=== PATIENT | male | born 1960 | race American Indian/Alaskan Native ===

== ENCOUNTER 2016-07-23 08:59 | Emergency (ER) | payer MEDICAID ==
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
[2016-07-23] MEDS ORDERED: BOOSTRIX IM ONE (11:38)
[2016-07-23] MEDS ORDERED: ZESTRIL PO ONE (11:54)
--- NOTE | 2016-07-23 12:18 | Cat Scan Report ---
CT HEAD WITHOUT CONTRAST INDICATION: Fall, pain, LOC. COMPARISON: None similar. FINDINGS: Noncontrast head CT demonstrates normal ventricles and sulci without acute or recent infarct, hemorrhage, mass effect or midline shift. No abnormal extra-axial fluid collections. Slight periventricular hypodensities. Small, benign basal ganglia calcifications. Posterior fossa structures and basilar cisterns appear within normal limits. Symmetric eye globes. Clear paranasal sinuses and mastoid air cells. Intact calvarium. Normal overlying scalp soft tissues. Few missing teeth and radiopaque dental material incidentally noted. CONCLUSION: No acute intracranial CT abnormality, as described. Thank you for the opportunity to participate in this patient's care.
--- NOTE | 2016-07-23 12:32 | Cat Scan Report ---
CT CERVICAL SPINE WITHOUT CONTRAST INDICATION: Fall, pain. COMPARISON: None similar. FINDINGS: Noncontrast axial, sagittal and coronal CT reconstructions through the cervical spine demonstrate normal imaged posterior fossa with intact craniocervical articulation. Small radiopaque dental fillings and some missing teeth. Normal vertebral body alignment. Few small apical peripheral bullae, right more than left. On the obtained axial images: C2-C3 and C3-C4 appear unremarkable. C4-C5 demonstrates mild degenerative spurring. Mild disc bulge/osteophyte complex may partly efface ventral CSF space. C5-C6 demonstrates mild disc narrowing. Degenerative spurring noted with diffuse disc bulge/osteophyte complex posteriorly, possibly approaching/contacting the cord ventrally. Right neural foraminal narrowing. More inferior assessment obscured due to artifact from shoulder soft tissues, though imaged C6-C7 and C7-T1 levels appear grossly within normal limits. CONCLUSION: No acute cervical spine CT abnormality with few degenerative changes noted, greatest at C5-C6, as described. Please correlate. Thank you for the opportunity to participate in this patient's care.
[2016-07-23] MEDS ORDERED: PERCOCET 5/325 PO ONE (12:35)
--- NOTE | 2016-07-23 12:35 | Cat Scan Report ---
CT LUMBAR SPINE WITHOUT CONTRAST INDICATION: Fall, pain, left leg numbness. COMPARISON: None similar. FINDINGS: Noncontrast axial, sagittal and coronal CT reconstructions through the lumbar spine demonstrate normal vertebral body stature and alignment. Preserved disc heights. No large disc protrusion or spinal stenosis suspected. Mild aortic atherosclerotic calcifications. Bilateral SI joint degenerative changes. CONCLUSION: No acute lumbar spine CT abnormality with few other findings, as described. Please correlate. Thank you for the opportunity to participate in this patient's care.
[2016-07-23 12:57] VITALS: BP 194/115
--- NOTE | 2016-07-23 14:08 | XRay Report ---
LEFT FOREARM RADIOGRAPHS INDICATION: Pain, status post fall. History of surgery. COMPARISON: None similar. FINDINGS: AP and lateral left forearm views attempted, though limited due to patient unable to straighten his elbow. Numerous radiodense shrapnels seen about the elbow measuring up to 7 mm with old healed deformity. Grossly intact remainder imaged bones. Mild ulnar negative variance possible. CONCLUSION: Limited left elbow radiograph without definite acute abnormality with few incidental findings, as above. Please correlate. Thank you for the opportunity to participate in this patient's care.
--- NOTE | 2016-07-23 14:12 | XRay Report ---
RIB RADIOGRAPHS WITH CHEST VIEW INDICATION: Fall, pain, swelling. COMPARISON: None similar. FINDINGS: Frontal chest as also AP and oblique radiographs to evaluate bilateral ribs, 7 projections demonstrate normal cardiomediastinal silhouette. Clear lungs without effusions, CHF or pneumothorax. Lucency/fracture along the left ninth rib anteriorly incidentally noted. CONCLUSION: Left ninth rib fracture lucency anteriorly, exact age indeterminate, as described. Please correlate. Thank you for the opportunity to participate in this patient's care.
== END 2016-07-23 14:59 | disposition home or self-care (01) ==
LOC: ED 08:59
DX: S06.0X1A Concussion with loss of consciousness of 30 minutes or less, initial encounter (principal); S16.1XXA Strain of muscle, fascia and tendon at neck level, initial encounter; S22.32XA Fracture of one rib, left side, initial encounter for closed fracture; M54.42 Lumbago with sciatica, left side; I10 Essential (primary) hypertension; Z87.891 Personal history of nicotine dependence; W01.0XXA Fall on same level from slipping, tripping and stumbling without subsequent striking against object, initial encounter; Y93.9 Activity, unspecified; Y92.9 Unspecified place or not applicable; Y99.9 Unspecified external cause status
CPT/HCPCS: 70450; 71111; 72125; 72131; 90471; 90715; 99284

== ENCOUNTER 2019-05-28 21:03 | Emergency (ER) | payer MEDICAID ==
[2019-05-29] MEDS ORDERED: ACETAMINOPHEN 325 MG TAB PO ONE (00:24)
--- NOTE | 2019-05-29 00:24 | Emergency Department Report ---
HPI - General Chief Complaint: Upper Respiratory Infection Time Seen by Provider: 05/29/19 00:23 - HPI HPI: This is a 59-year-old male he reports that he has dry cough and body aches x1 week. He denies any fever but reports some chills. Denies any nausea vomiting or diarrhea. He reports he has some shortness of breath on exertion. Denies any contact with anyone with similar symptoms and said he has been home for a week. Denies any abdominal pain or diarrhea. Denies any nasal congestion or runny nose. Bodyache is 3 out of 10 and constant. Denies taking any medication. Denies any known contact with anyone with coronavirus. Patient denies any sore throat ED Past Medical Hx - Past Medical History Previous Medical History?: Yes Hx Hypertension: Yes Hx Psychiatric Treatment: Yes (BIPOLAR) Additional medical history: CHRONIC PAIN - Surgical History Past Surgical History?: Yes Additional Surgical History: LEFT ELBOW SURGERY - Family History Family history: hypertension - Social History Smoking Status: Former Smoker Substance Use Type: Alcohol, Prescribed - Medications Home Medications: Home Medications Medication Instructions Recorded Confirmed Last Taken Type Ibuprofen [Motrin] 600 mg PO Q8H PRN #15 tablet 07/23/16 Unknown Rx oxyCODONE /ACETAMINOPHEN [Percocet 1 tab PO Q6HR PRN #10 tablet 07/23/16 Unknown Rx 5/325] Acetaminophen [Acetaminophen ER] 650 mg PO Q8H PRN #15 tablet.er 05/29/19 Unknown Rx Benzonatate [Tessalon Perles] 100 mg PO Q8HR PRN #12 capsule 05/29/19 Unknown Rx ED Review of Systems ROS: Stated complaint: FLU SYMPTOMS Other details as noted in HPI Constitutional: denies: chills, fever, weakness Eyes: denies: eye discharge ENT: denies: ear pain, throat pain, congestion Respiratory: cough, shortness of breath, SOB with exertion. denies: orthopnea, SOB at rest, stridor, wheezing Cardiovascular: denies: chest pain, palpitations, edema, syncope Gastrointestinal: denies: abdominal pain, nausea, vomiting, diarrhea Skin: denies: rash Neurological: denies: headache, weakness, vertigo Physical Exam - Physical Exam Vital Signs: Vital Signs 05/28/19 05/28/19 21:53 21:55 Temperature 99.0 F 99.0 F Pulse Rate 90 89 Respiratory 16 16 Rate Blood Pressure 153/88 Blood Pressure 153/88 [Right] O2 Sat by Pulse 98 98 Oximetry General: This is a 59-year-old male well-nourished well-developed and nontoxic in appearance Physical Exam: Head: Normocephalic atraumatic. Mouth: Oral mucosa moist, tongue is normal, uvula is midline, no IRONING MACHINE OPERATOR or dr ooling, oral airways patent and uvula is Lungs: Clear to auscultated bilaterally, no rhonchi wheezes or rales. No use of accessory muscles. Dry cough Neck: Supple, no tracheal deviation. No C-spine tenderness and full range of motion. Negative stridor and negative crepitus CV: S1, S2. Regular rate Nose: Normal exam EARS: Normal exam Abdomen: Nontender to palpate in all quadrants, normal bowel sounds in all quadrants. No distention. Eyes: Bilateral pupils equal and reactive to light, conjunctival injection or icterus. Bilateral EOM intact and normal accommodation. Lids are normal. No swelling noted. Skin: Clean dry and intact, no rash or lesion Extremity: No cce. + 2 pulses in all extremities, no neurovascular compromise. Mood: Normal mood and behavior Neurological: No focal neurological deficit. Normal gait, speech is clear fluid, she is alert and oriented 3, no motor or sensory deficits. Normal strength all extremities and normal reflexes. Negative Romberg and negative pronator drift Back: Nontender to palpate to vertebral spine from C-spine to L-spine including sacral area. No paraspinal tenderness and no CVA tenderness. No rash noted. ED Course Vital Signs 05/28/19 05/28/19 21:53 21:55 Temperature 99.0 F 99.0 F Pulse Rate 90 89 Respiratory 16 16 Rate Blood Pressure 153/88 Blood Pressure 153/88 [Right] O2 Sat by Pulse 98 98 Oximetry - Reevaluation(s) Reevaluation #1: 05/29/19 02:36 Patient received Tylenol 975 mg in emergency room. He is stable and in no acute distress ED Medical Decision Making - Radiology Data Radiology results: report reviewed Chest x-ray dictated by radiologist and report reviewed by myself. Please see report below Findings [facility] [address] [place] [address] XRay Report Signed Patient: DORA CAMPBELL MR#: [id number] : 1960 Acct:[id number] Age/Sex: 59 / M ADM Date: 05/28/19 Loc: ED Attending Dr: Ordering Physician: JOAQUIM ANDREA Date of Service: 05/29/19 Procedure(s): XR chest 1V ap Accession Number(s): [id number] cc: JOAQUIM ANDREA Fluoro Time In Minutes: CHEST 1 VIEW INDICATION / CLINICAL INFORMATION: cough, fever. COMPARISON: None available. FINDINGS: SUPPORT DEVICES: None. HEART / MEDIASTINUM: No significant abnormality. LUNGS / PLEURA: Minimal parenchymal density in both lungs No pneumothorax. ADDITIONAL FINDINGS: No significant additional findings. IMPRESSION: Minimal parenchymal density is seen in both lungs which could represent atelectasis Signer Name: Haider Garsia MD FACR Signed: 05/29/2019 1:30 AM Workstation Name: [id number] Transcribed By: MS Dictated By: Haider Garsia MD Electronically Authenticated By: Haider Garsia MD Signed Date/Time: 05/29/19129 DD/ 8 TD/TT: - Medical Decision Making This is a 59-year-old male here report that he has been having dry cough, body aches some shortness of breath on and off over the last week. Physical exam is normal except he has dry cough but lung sounds are clear throughout. Chest x- ray dictated by radiologist and report reviewed by myself and no acute processes. Influenza a and B is negative. Patient received Tylenol in the emergency room for low-grade fever. Vital signs stable is afebrile and in no acute distress. - Differential Diagnosis Suspect COVID, PNA, bronchitis, URI with cough and congestion Critical care attestation.: If time is entered above; I have spent that time in minutes in the direct care of this critically ill patient, excluding procedure time. ED Disposition Clinical Impression: Suspected COVID-19 virus infection, URI with cough and congestion Disposition: DC-01 TO HOME OR SELFCARE Is pt being admited?: No Does the pt Need Aspirin: No Condition: Stable Instructions: COVID-19, Upper Respiratory Infection (ED) Additional Instructions: He will need to be on quarantine for 14 days These call your primary care physician and inform them that you were placed on quarantine for suspect coronavirus Take Tylenol as prescribed for pain or fever Take Tessalon Perles for cough If your condition worsens, return to the emergency room Please see discharge diagnosis and coronavirus and also pamphlets given. Please expect a call from the health department regarding possible testing for coronavirus and you will need to take directions from them regarding testing and treatment Referrals: PRIMARY CARE, [Primary Care Provider] - 05/31/19 Forms: Work/School Release Form(ED)
--- NOTE | 2019-05-29 01:34 | XRay Report ---
CHEST 1 VIEW INDICATION / CLINICAL INFORMATION: cough, fever. COMPARISON: None available. FINDINGS: SUPPORT DEVICES: None. HEART / MEDIASTINUM: No significant abnormality. LUNGS / PLEURA: Minimal parenchymal density in both lungs No pneumothorax. ADDITIONAL FINDINGS: No significant additional findings. IMPRESSION: Minimal parenchymal density is seen in both lungs which could represent atelectasis Signer Name: Haider Garsia MD FACR Signed: 05/29/2019 1:30 AM Workstation Name: [id number]
[2019-05-29 02:57] VITALS: BP 130/94
== END 2019-05-29 03:20 | disposition home or self-care (01) ==
LOC: ED 21:03
DX: J06.9 Acute upper respiratory infection, unspecified (principal)
CPT/HCPCS: 71045; 87400